=== PATIENT | female | born 1985 | race Caucasian/White ===

== ENCOUNTER 2019-12-16 10:10 | Emergency (ER) | payer OTHER, SELFPAY ==
[2019-12-16 10:20] VITALS: BP 139/83; PULSE 71; RESP 20; TEMP 36.9; O2SAT 100
--- NOTE | 2019-12-16 10:40 | ED.GENADULT ---
HPI - General Adult General Chief complaint: Skin/Abscess/Foreign Body Stated complaint: pos hemroids Time Seen by Provider: 12/16/19 10:22 Source: patient and RN notes reviewed Mode of arrival: ambulatory Limitations: no limitations History of Present Illness HPI narrative: Patient presents today complaining of rectal pain x1 week. States that she had one episode of blood-streaked stool on the first day of symptoms, but none since that time. She has been straining as she has been using Metamucil. She did have some loose stools last night. Denies nausea, vomiting, watery diarrhea. Denies abdominal pain or fever. History of anal fissures twice in the past. MD complaint: Rectal pain Related Data Allergies Allergy/AdvReac Type Severity Reaction Status Date / Time Penicillins Allergy Mild Verified 03/29/18 12:11 Review of Systems Review of Systems: Narrative: CONSTITUTIONAL: Denies body aches, fever, chills, or sweats. EYES: Denies visual changes, redness, or discharge. ENT: Denies rhinorrhea, congestion, sore throat, or otalgia. CARDIOVASCULAR: Denies chest pain, palpitations, or edema. RESPIRATORY: Denies cough or dyspnea. GASTROINTESTINAL: Denies abdominal pain, nausea, vomiting, or diarrhea. + Rectal pain GENITOURINARY: Denies dysuria or hematuria. SKIN: Denies rash, itching, or wounds. MUSCULOSKELETAL: Denies back pain, joint pain, or myalgia. NEUROLOGIC: Denies headache, numbness, tingling, or weakness. PSYCH: Denies depression or anxiety. PMFSH Social History Social History Gender identity (if verbalized by the patient): Female Comments At time of signature, I have reviewed and agree with nursing past medical, surgical, social and family history unless otherwise noted. Please see nursing chart for further information. There is no relevant family history pertinent to the presenting complaint Exam Narrative: Exam Narrative: GENERAL: Well-appearing, well-nourished, and in no acute distress. HEAD: Normocephalic, atraumatic. EYES: EOMI. No redness or drainage. Conjunctivae normal. ENT: Mucous membranes pink and moist. NECK: Normal AROM. CHEST: No respiratory distress. ABDOMEN: Soft, nontender, nondistended, normal active bowel sounds. No obvious fissures visualized. No obvious external hemorrhoids noted as well. Rectal exam: Patient in pain and clenching. Would not allow rectal exam to my DIP so was unable to fully evaluate the anus and rectum. No obvious bright red noted to gloved finger. MUSCULOSKELETAL: No bony tenderness. EXTREMITIES: Normal range of motion. No edema. SKIN: Warm, dry, no rash. Capillary refill normal. Normal skin turgor. NEURO: No focal deficits. Alert and oriented x3. Gait steady. PSYCH: Normal affect. No signs of depression or anxiety. Course Course Emergency Course: Unable to fully evaluate the anus and rectum as patient would not tolerate exam. As she was very uncomfortable even with external anal exam, I will treat for presumed anal fissure. Anticipatory guidance given. Vital Signs Vital signs: Vital Signs Temperature 98.5 F 12/16/19 10:20 Pulse Rate 71 12/16/19 10:20 Respiratory Rate 12/16/19 10:20 Blood Pressure 139/83 12/16/19 10:20 Pulse Oximetry 100 12/16/19 10:20 Temperature 98.5 F 12/16/19 10:20 Pulse Rate 71 12/16/19 10:20 Respiratory Rate 12/16/19 10:20 Blood Pressure 139/83 12/16/19 10:20 Pulse Oximetry 100 12/16/19 10:20 Reviewed. Pt has been instructed to follow up with her PCP regarding her elevated blood pressure today. Medical Decision Making Differential Diagnosis Differential Diagnosis: Anal fissure, external hemorrhoid, internal hemorrhoid, constipation Vital Signs Vital Signs: Vital Signs Temperature 98.5 F 12/16/19 10:20 Pulse Rate 71 12/16/19 10:20 Respiratory Rate 12/16/19 10:20 Blood Pressure 139/83 12/16/19 10:20 Pulse Oximetry 100 12/16/19 10:20 Temperature 98.5 F
== END 2019-12-16 10:44 | disposition home or self-care (01) ==
PROVIDERS: Emergency Provider Nurse Practitioner
DX: K60.2 Anal fissure, unspecified (principal)
CPT/HCPCS: 99213; G0463

== ENCOUNTER 2020-06-25 12:31 | Emergency (ER) | payer OTHER, SELFPAY ==
[2020-06-25 12:46] VITALS: BP 143/85; PULSE 73; RESP 12; TEMP 36.9; O2SAT 100
--- NOTE | 2020-06-25 13:01 | ED.FEMALEGU ---
HPI - Female Genitourinary General Chief complaint: Urogenital-Female Stated complaint: FREQUENT URINATION Time Seen by Provider: 06/25/20 13:02 Source: patient Mode of arrival: ambulatory Limitations: no limitations History of Present Illness HPI Narrative: Parag Devine ingrid 34 yo female with no PMH woke up today at 4 AM with burning and frequency; no N/V/D, no abdominal pain complains of abdominal cramping when finishing urinating; no acute pain except whe trying to urinate Related Data Allergies Allergy/AdvReac Type Severity Reaction Status Date / Time Penicillins Allergy Mild Hives Verified 06/25/20 12:39 amoxicillin Allergy Hives Verified 06/25/20 12:39 Review of Systems Review of Systems: Narrative: CONSTITUTIONAL: Denies fever, chills, sweats. EYES: Denies visual changes, redness, discharge. ENT: Denies rhinorrhea, congestion, sore throat, otalgia. CARDIOVASCULAR: Denies chest pain, palpitations, edema. RESPIRATORY: Denies dyspnea, wheezing, cough GASTROINTESTINAL: Denies abdominal pain, nausea, vomiting, diarrhea. GENITOURINARY: has dysuria, hematuria, abnormal discharge SKIN: Denies rash or itching. NEUROLOGIC: Denies numbness, or focal weakness. PSYCHIATRIC: Denies anxiety or depression. PMFSH Past Medical History Medical History No acute medical problems Family History Family History Father Hypertension Social History Social History (Updated 06/25/20 @ 13:10 by Romina Doherty CNP) Smoking status: Never smoker Alcohol intake: current Gender identity (if verbalized by the patient): Female Comments At time of signature, I agree with nursing past medical, surgical, social and family history. There is no relevant family history pertinent to the presenting complaint. Blood pressure is elevated at this visit may be due to anxiety, follow-up with PCP this week Exam Narrative: Exam Narrative: GENERAL: This is a well-nourished, well-developed patient, in mild distress. HEAD: normocephalic, atraumatic. EYES: Sclera clear/white. Vision is grossly intact. EARS: External ears normal, . Hearing grossly intact. NOSE: External nose normal without nasal discharge, nares without redness, no rhinorrhea. THROAT: Mucous membranes moist, NECK: Neck supple, non-tender CARDIOVASCULAR: Regular rate and rhythm without murmurs, gallops, or rubs. RESPIRATORY: Clear to auscultation. Breath sounds equal bilaterally. No wheezes, rales, or rhonchi. GASTROINTESTINAL: Abdomen soft, SKIN: warm, intact with no suspicious lesions or rash, good texture and turgor. NEURO: awake, alert, and oriented to person, place and time. There were no obvious focal neurologic abnormalities. Steady gait EXTREMITIES: Normal range of motion. 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 in case she starts to have itching from Keflex) Hydrate well; follow-up with PCP Vital Signs Vital signs: Vital Signs Temperature 98.4 F 06/25/20 12:46 Pulse Rate 73 06/25/20 12:46 Respiratory Rate 12 06/25/20 12:46 Blood Pressure 143/85 H 06/25/20 12:46 Pulse Oximetry 100 06/25/20 12:46 Temperature 98.4 F 06/25/20 12:46 Pulse Rate 73 06/25/20 12:46 Respiratory Rate 12 06/25/20 12:46 Blood Pressure 143/85 H 06/25/20 12:46 Pulse Oximetry 100 06/25/20 12:46 MDM - Female Genitourinary Differential Diagnosis Differential diagnosis: Likely urinary tract infection, cystitis and other Lab Data Labs: Urine Glucose Negative
== END 2020-06-25 13:21 | disposition home or self-care (01) ==
PROVIDERS: Emergency Provider Nurse Practitioner
DX: N30.01 Acute cystitis with hematuria (principal)
CPT/HCPCS: 81003; 87077; 87086; 87088; 87186; 99213; G0463

== ENCOUNTER 2020-12-19 11:22 | Emergency (ER) | payer OTHER, SELFPAY ==
[2020-12-19 11:32] VITALS: BP 138/97; PULSE 65; RESP 16; TEMP 36.4; O2SAT 100
--- NOTE | 2020-12-19 12:03 | ED.FEMALEGU ---
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 No fever, malodor, dysuria, vaginal discharge and are like previous symptoms in springtime which showed pansensitive E. coli. Symptoms are mild, worse with micturition, associated with visible blood when wiping at the onset of symptoms then. Related Data Allergies Allergy/AdvReac Type Severity Reaction Status Date / Time Penicillins Allergy Mild Hives Verified 06/25/20 12:39 amoxicillin Allergy Hives Verified 06/25/20 12:39 Review of Systems Review of Systems: The patient has been informed that they may have pre-hypertension or Hypertension based on a BP reading in the department. I recommend that the patient call the primary care provider listed on their discharge instructions or a physician of their choice this week to arrange follow up for further evaluation of possible pre-hypertension or Hypertension General/Constitutional: No weight loss,fever Eyes: N0: Redness,discharge Ears/Nose/Throat: No: Epistaxis,ear discharge Respiratory: Denies: Hemoptysis Gastrointestinal: No Vomiting, Bleeding-rectal Skin: No Lumps, eruption Neurologic: No Focal Weakness,Sz Hematologic: Denies: Petechiae/Purpura Psychiatric: No: Suicida ideationl All Other Systems: Reviewed and Negative [facility] Past Medical History Medical History No acute medical problems Family History Family History Father Hypertension Social History Social History (Updated 06/25/20 @ 13:10 by Romina Doherty CNP) Smoking status: Never smoker Alcohol intake: current Gender identity (if verbalized by the patient): Female Comments At time of signature, agree with nursing past medical, surgical, social and family history. There is no relevant family history pertinent to the presenting complaint Exam Narrative: General Appearance: Well appearing, Conjunctiva clear Mouth/Throat: Normal appearing, Normal lips, Supple Respiratory: Airway patent, No respiratory distress Cardiovascular: RRR Abdomen: Soft, Non-tender, Musculoskeletal: Full ROM Skin: Warm, Dry Neurological: A&O x3, CN II-X intact Psychiatric: Normal mood, Normal affect Course Vital Signs Vital signs: Vital Signs Temperature 97.6 F 12/19/20 11:32 Pulse Rate 65 12/19/20 11:32 Respiratory Rate 16 12/19/20 11:32 Blood Pressure 138/97 H 12/19/20 11:32 Pulse Oximetry 100 12/19/20 11:32 Temperature 97.6 F 12/19/20 11:32 Pulse Rate 65 12/19/20 11:32 Respiratory Rate 16 12/19/20 11:32 Blood Pressure 138/97 H 12/19/20 11:32 Pulse Oximetry 100 12/19/20 11:32 MDM - Female Genitourinary Lab Data Labs: Urine Glucose Negative Reference Range: Negative Urine Bilirubin Negative Reference Range: Negative Urine Ketone Negative Reference Range: Negative Urine Specific Traver 1.010 Reference Range:1.001-1.035 Urine Blood Trace Reference Range: Negative * * Urine pH 6.5 Reference Range: 5.0-9.0 Urine Protein Negative Refere
== END 2020-12-19 12:11 | disposition home or self-care (01) ==
PROVIDERS: Emergency Provider Emergency Medicine
DX: N30.00 Acute cystitis without hematuria (principal)
CPT/HCPCS: 81003; 87086; 87491; 87591; 99213; G0463

== ENCOUNTER 2022-09-27 10:20 | Emergency (ER) | payer OTHER, SELFPAY ==
--- NOTE | 2022-09-27 10:22 | ED.FEMALEGU ---
HPI - Female Genitourinary General Chief complaint: Urogenital-Female Stated complaint: female Urogenital Time Seen by Provider: 09/27/22 10:21 Source: patient Mode of arrival: ambulatory Limitations: no limitations History of Present Illness HPI Narrative: Parag is a 36-year-old female patient presenting to the clinic today with complaints of possible urinary tract infection. She reports she has developed incomplete emptying of her bladder and urinary frequency that began yesterday. States that she is having some lower abdominal discomfort. No known fever or chills. Denies any flank pain. Related Data Home Medications Medication Instructions Recorded Confirmed No Home Medications 09/27/22 09/27/22 Allergies Allergy/AdvReac Type Severity Reaction Status Date / Time Penicillins Allergy Mild Hives Verified 09/27/22 10:35 amoxicillin Allergy Hives Verified 09/27/22 10:35 Review of Systems Review of Systems: Pertinent positives per HPI. Patient denies any fever, chills, rash, headache, visual changes, dizziness, cough, runny nose, sore throat, shortness of breath, chest pain, palpitations, nausea, vomiting, diarrhea, constipation. PMFSH Past Medical History Medical History No acute medical problems Family History Family History Father Hypertension Social History Social History Smoking status: Never smoker Alcohol intake: current Gender identity (if verbalized by the patient): Female Comments At the time of my signature, I reviewed and agree with the nursing past medical, surgical, social, and family history. There is no relevant family history pertinent to the patient complaint. Exam Narrative: General: Well-developed, well nourished, in no apparent distress. Head: Normocephalic, atraumatic. Cardio: Regular rate and rhythm, s1 and s2 normal, no murmur appreciated. Resp: Clear to auscultation bilaterally, no rhonchi, rales, wheezing or rubs. Abdomen: Soft, pliable, bowel sounds present in all quadrants, tender to palpation over the mid lower abdomen, no organomegly, no CVAT tenderness. Course Course Emergency Course: Portions of this record may have been created with voice recognition software. Level of Care: Express Care Visit Vital Signs Vital signs: Vital signs reviewed MDM - Female Genitourinary MDM Narrative Medical decision making narrative: At the time of visit patient is resting comfortably on the exam table. Urinalysis positive for nitrates, leukocytes, blood, and protein. We will send for culture. Will place the patient on Bactrim DS and Pyridium. Supportive measures were discussed with the patient she voiced understanding discharge instructions and agrees to treatment plan. Differential Diagnosis Differential diagnosis: Likely urinary tract infection and cystitis Discharge Plan Discharge Clinical Impression: Urinary tract infection Qualifiers: Urinary tract infection type: acute cystitis Hematuria presence: with hematuria Qualified Code(s): N30.01 - Acute cystitis with hematuria Patient Disposition: Home, Self-Care Condition: Stable Instructions: Antibiotic Form, Urinary Tract Infection in Women (ED) Additional Instructions: Urinalysis positive for UTI. Will send for culture. Take Bactrim ds 1 tab twice daily x7 days May take Pyridium as directed Increase fluids and stay well hydrated Wipe front to back. May use wet wipes. Avoid tub baths If sexually active- pee before and after intercourse. Wear cotton panties Avoid tight clothing up against the genitals Follow up with your PCP in 1 week if symptoms persist. Prescriptions: New sulfamethoxazole-trimethoprim [Bactrim DS] 800-160 mg tablet 1 tablet PO Q12H 7 Days Qty: 14 0RF phenazopyrid
[2022-09-27 10:28] VITALS: BP 131/81; PULSE 75; RESP 18; TEMP 36.4; O2SAT 100
== END 2022-09-27 10:40 | disposition home or self-care (01) ==
PROVIDERS: Emergency Provider Nurse Practitioner Family
DX: N30.01 Acute cystitis with hematuria (principal)
CPT/HCPCS: 81003; 87077; 87086; 87186; 99213; G0463

== ENCOUNTER 2023-02-08 10:25 | Emergency (ER) | payer OTHER, SELFPAY ==
[2023-02-08 10:35] VITALS: BP 115/69; PULSE 70; RESP 16; TEMP 36.2; O2SAT 100
--- NOTE | 2023-02-08 11:01 | ED.FEMALEGU ---
HPI - Female Genitourinary General Chief complaint: Urogenital-Female Stated complaint: Female Urogenital Source: patient, RN notes reviewed and old records reviewed History of Present Illness HPI Narrative: 37 yo F presents to urgent care with complaints of urinary urgency and frequency x 2 days. Pt also reports having pain in her mid lower abdomen last night. Denies any fevers, chills, flank pain, back pain, N/V, or concern for STI. Related Data Allergies Allergy/AdvReac Type Severity Reaction Status Date / Time Penicillins Allergy Mild Hives Verified 09/27/22 10:35 amoxicillin Allergy Hives Verified 09/27/22 10:35 Review of Systems Review of Systems: CONSTITUTIONAL: Denies fever, chills, or sweats. EYES: Denies visual changes, redness, or discharge. ENT: Denies otalgia and sore throat CARDIOVASCULAR: Denies chest pain, palpitations, or edema. RESPIRATORY: Denies cough or dyspnea. GASTROINTESTINAL: Denies nausea, vomiting, or diarrhea. SKIN: Denies rash or itching. MUSCULOSKELETAL: Denies back pain, joint pain, or myalgia. NEUROLOGIC: Denies headache, numbness, or weakness. Pertinent positives per HPI. PMFSH Past Medical History Medical History No acute medical problems Family History Family History Father Hypertension Social History Social History Smoking status: Never smoker Alcohol intake: current Gender identity (if verbalized by the patient): Female Comments At the time of my signature, I reviewed and agree with the nursing past medical, surgical, social, and family history. There is no relevant family history pertinent to the patient complaint. Exam Narrative: GENERAL: This is a well-nourished, well-developed patient, in no apparent distress. HEAD: normocephalic, atraumatic. EYES: Sclera clear/white. Vision is grossly intact. EARS: External ears normal, auditory canals clear and without drainage. Hearing grossly intact. NOSE: External nose normal with no obvious nasal discharge, nares without redness, no rhinorrhea. CARDIOVASCULAR: Regular rate and rhythm without murmurs, gallops, or rubs. RESPIRATORY: Clear to auscultation. Breath sounds equal bilaterally. No wheezes, rales, or rhonchi. GASTROINTESTINAL: Abdomen soft, nondistended. Pt reports slight tenderness in the suprapubic area with palpation. SKIN: warm, intact with no suspicious lesions or rash, good texture and turgor. NEURO: awake, alert, and oriented to person, place and time. There were no obvious focal neurologic abnormalities. EXTREMITIES: No clubbing, cyanosis, or edema. No joint tenderness, effusion, or edema noted. BACK: Nontender without deformity or crepitus. No flank tenderness. Course Course Level of Care: Express Care Visit Vital Signs Vital signs: Vital Signs Temperature 97.2 F L 02/08/23 10:35 Pulse Rate 70 02/08/23 10:35 Respiratory Rate 16 02/08/23 10:35 Blood Pressure 115/69 02/08/23 10:35 Pulse Oximetry 100 02/08/23 10:35 Oxygen Delivery Room Air 02/08/23 10:35 Temperature 97.2 F L 02/08/23 10:35 Pulse Rate 70 02/08/23 10:35 Respiratory Rate 16 02/08/23 10:35 Blood Pressure 115/69 02/08/23 10:35 Pulse Oximetry 100 02/08/23 10:35 Oxygen Delivery Room Air 02/08/23 10:35 reviewed MDM - Female Genitourinary MDM Narrative Medical decision making narrative: We will send a urine culture off to the lab; if the culture identifies an organism that the prescribed antibiotic will not treat, you will receive a phone call from an urgent care staff member and an appropriate antibiotic will be prescribed. -Your symptoms should begin to improve within a day of starting antibiotics. But you should finish all the antibiotic pills you get. Otherwise your infection might come back. -Also recom
== END 2023-02-08 11:08 | disposition home or self-care (01) ==
PROVIDERS: Emergency Provider Nurse Practitioner Family
DX: N39.0 Urinary tract infection, site not specified (principal)
CPT/HCPCS: 81003; 87077; 87086; 87186; 99213; G0463

== ENCOUNTER 2023-09-25 08:31 | Emergency (ER) | payer OTHER, SELFPAY ==
[2023-09-25 08:41] VITALS: BP 134/74; PULSE 71; RESP 16; TEMP 36.4; O2SAT 100
--- NOTE | 2023-09-25 08:43 | ED.GENADULT ---
HPI - General Adult General Chief complaint: Urogenital-Female Stated complaint: ?Uti Time Seen by Provider: 09/25/23 08:43 Source: patient, RN notes reviewed and old records reviewed Mode of arrival: ambulatory Limitations: no limitations History of Present Illness HPI narrative: patient presents to [facility] with complaints of urinary frequency and burning for a couple of days. Worse today. 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 She denies any back pain. Denies any fever, chills, sweats. Denies any injury or trauma. Denies any gross hematuria Related Data Allergies Allergy/AdvReac Type Severity Reaction Status Date / Time Penicillins Allergy Mild Hives Verified 09/25/23 08:46 amoxicillin Allergy Hives Verified 09/27/22 10:35 Review of Systems Review of Systems: All systems reviewed & are unremarkable except as noted in HPI and below Constitutional: Constitutional: Reports no additional constitutional complaints ENT: Reports system reviewed and no additional complaints, except as documented Cardiovascular: Cardiovascular: Reports no additional cardiovascular complaints Respiratory: Respiratory: Reports no additional respiratory complaints Gastrointestinal: Gastrointestinal: Reports no additional gastrointestinal complaints Genitourinary: Genitourinary: Reports dysuria, Denies pelvic pain, Denies flank pain, Denies urinary incontinence, Reports urinary hesitancy, Reports urinary urgency and Denies vaginal discharge PMF Past Medical History Medical History No acute medical problems Family History Family History Father Hypertension Social History Social History Smoking status: Never smoker Alcohol intake: current Gender identity (if verbalized by the patient): Female Comments At the time of my signature, I reviewed and agree with the nursing past medical, surgical, social, and family history. There is no relevant family history pertinent to the patient complaint. Exam Const: General: cooperative, no acute distress, alert and awake Orientation/consciousness: oriented to person, oriented to place and oriented to time HENMT: Head: normal to inspection Resp: Effort & Inspection: normal respiratory effort and able to speak in complete sentences Auscultation: clear to auscultation bilaterally, no crackles, no rales, no rhonchi and no wheezes Cardio: Palpation: normal PMI Rate: regular rate Rhythm: regular rhythm Heart sounds: S1 normal heart sound present and S2 normal heart sound present : General: Yes no CVA tenderness Back/Spine/Pelvis: Pelvis: no tenderness over symphysis pubis Neuro: General: oriented to person, oriented to place and oriented to time Cranial nerves: Yes CN's II-XII intact bilaterally Psych: Appearance: grossly normal Thought process: Normal thought process present Insight: Good insight present (Psych) Judgement: Good judgement present (Psych) Course Course Level of Care: Express Care Visit Vital Signs Vital signs: Vital Signs Temperature 97.6 F 09/25/23 08:41 Pulse Rate 71 09/25/23 08:41 Respiratory Rate 16 09/25/23 08:41 Blood Pressure 134/74 09/25/23 08:41 Pulse Oximetry 100 09/25/23 08:41 Oxygen Delivery Room Air 09/25/23 08:41 Temperature 97.6 F 09/25/23 08:41 Pulse Rate 71 09/25/23 08:41 Respiratory Rate 16 09/25/23 08:41 Blood Pressure 134/74 09/25/23 08:41 Pulse Oximetry 100 09/25/23 08:41 Oxygen Delivery Room Air 09/25/23 08:41 Reviewed Medical Decision Making MDM Narrative Medical decision making narrative: patient with 2 days of urinary frequency and burning, some hesitancy.
[2023-09-25 10:06] LABS: EDUAAPPEAR Cloudy; EDUABILI Negative; EDUABLOOD Trace; EDUACOLOR1 Light/Pale; EDUAGLUCOSE Negative; EDUAKETONE Negative; EDUALEUKO 1+; EDUANITRATE Negative; EDUAPH 6.5; EDUASPGRAVITY 1.015; EDUAUROBILI 0.2
== END 2023-09-25 09:07 | disposition home or self-care (01) ==
PROVIDERS: Emergency Provider Nurse Practitioner Family
DX: N39.0 Urinary tract infection, site not specified (principal); B96.20 Unspecified Escherichia coli [E. coli] as the cause of diseases classified elsewhere; I10 Essential (primary) hypertension
CPT/HCPCS: 81003; 87077; 87086; 87088; 87186; 99213; G0463